=== PATIENT | female | born 1950 | race Caucasian/White ===

== ENCOUNTER 2018-01-20 19:16 | Observation (INO) | payer MEDICARE, OTHER ==
[~2018-01-20] VITALS: Ht 167.6 cm; Wt 78.0 kg
[~2018-01-20 19:16] MED LIST: ACET325 PO; ASPI325T PO; B12-1CHW IM; CRAN500C2 PO; FLUO20SO3 PO; FURO40TA PO; IRON18TA2 IV; LISI-363 PO; MELO15TA2 PO; RANI150 PO; ST JOHN S WORT PO; TAB-TAB PO
[2018-01-20 20:12] VITALS: BP 125/58; PULSE 83; RESP 15; TEMP 98.1; O2SAT 97
[2018-01-20] MEDS ORDERED: LIDOCAINE HCL 1% PF 30 ML VIAL INFIL ONE (20:30)
--- NOTE | 2018-01-20 20:36 | PD ---
HPI Chief Complaint: Fall Time Seen by Provider: 20:32 Travel History International Travel<30 days: No Contact w/Intl Traveler<30days: No Traveled to known affect area: No History of Present Illness HPI 67-year-old female presents to the emergency department by EMS transport from local parking lot where she had a non-syncopal slip and fall sustaining a laceration to her left lower leg ankle area. Patient admits to drinking alcohol this evening prior to attempting to drive home and patient reports that she lost her balance as she got into her vehicle and sustained a laceration to her lower leg. Patient states she did not hit her head did not have loss of consciousness did not sustain an injury to her neck back chest abdomen pelvis or other extremities. Patient states her last tetanus immunization was approximately 1 year ago. Patient takes aspirin but no other blood thinning agents daily. Patient has extensive past medical history including CVA with mild right-sided residual weakness. Patient has chronic neck and back pain associated with previous injury and surgical intervention. Patient denies any chest pain palpitations shortness of breath sweats near syncope syncope or new onset balance disturbance or headache. Patient rates her ankle pain 10/10 in intensity. PFSH Past Medical History Narrative Medical Anemia arthritis depression basal cell cancer CVA TIA GERD UTI hypertension osteoarthritis renal insufficiency gastric bypass cholecystectomy bilateral knee surgery; alcohol use; nursing notes reviewed Hx Anticoagulant Therapy: Yes (ASA) Anemia: Yes Arthritis: Yes Asthma: No Autoimmune Disease: No Blood Disorders: No Anxiety: No Depression: Yes Heart Rhythm Problems: No Cancer: Yes (BASAL CELL) Cardiovascular Problems: Yes (HTN) High Cholesterol: No Chemotherapy: No Chest Pain: No Congestive Heart Failure: No COPD: No Cerebrovascular Accident: Yes Diabetes: No Diminished Hearing: No Endocrine: No Gastrointestinal Disorders: Yes (acid reflux) GERD: Yes Glaucoma: No Genitourinary: Yes (kidney infections) Headaches: No Hepatitis: No Hiatal Hernia: No Hypertension: Yes Immune Disorder: No Implanted Vascular Access Dvce: Yes Kidney Stones: No Musculoskeletal: Yes (osteoarthritis through the spine) Neurologic: Yes (cva 2001 multiple tia's numbness and tingling in both upper ext) Psychiatric: Yes (hx of depression) Reproductive: No Respiratory: No Migraines: No Myocardial Infarction: No Radiation Therapy: No Renal Failure: Yes (ACUTE RENAL FAILURE) Seizures: No Sickle Cell Disease: No Sleep Apnea: No Thyroid Disease: No Ulcer: No Menopausal: Yes : 1 Para: 1 Past Surgical History Abdominal Surgery: Yes (gastric by-pass cholecystectomy) AICD: No Appendectomy: No Arteriovenous Shunt: No Body Medical Devices: hardware left foot neck pt has hardware Cardiac Surgery: No Cholecystectomy: Yes Ear Surgery: No Endocrine Surgery: Yes (GALLBLADDER ) Eye Surgery: No Genitourinary Surgery: No Gynecologic Surgery: No Insulin Pump: No Joint Replacement: Yes (trista knees) Oral Surgery: No Pacemaker: No Thoracic Surgery: No Other Surgery: Yes Social History Alcohol Use: Yes (3-4 glassed of wine a week.) Tobacco Use: No Substance Use: No Allergies-Medications (Allergen,Severity, Reaction): Coded Allergies: No Known Allergies (Verified Adverse Reaction, Unknown, 01/20/18) Reported Meds & Prescriptions Reported Meds & Active Scripts Active Reported Aspirin 325 Mg Tab (Aspirin) 325 Mg Tab 325 Mg PO DAILY [saint kaiser wort] 150 Mg PO DAILY Mobic (Meloxicam) 15 Mg Tab 15 Mg PO DAILY Cranberry (Cranberry (Vaccinium Macrocarp) 500 Mg Cap PO DAILY Multivitamin (Multivitamins) 1 Tab Tab 1 Tab PO DAILY Zantac 150 Mg Tab (Ranitidine HCl) 150 Mg Tab 150 Mg PO BID [id number] (Mecobalamin) Unknown Strength Chw 1,000 Mg IM MONTHLY Iron (Ferrous Sulfate) Unknown Strength Tab Unknown Dose IV pt's iron level is checked q 3-4 mos and they give iv iron accordingly Furosemide 40 Mg Tab 40 Mg PO DAILY Lisinopril 20 mg (Lisinopril) 20 Mg Tab 1 Tab PO DAILY Tylenol (Acetaminophen) 325 Mg Tab 650 Mg PO Q6H PRN Prozac (Fluoxetine HCl) 20 Mg/5 Ml Liqd 20 Mg PO DAILY Review of Systems Except as stated in HPI: all other systems reviewed are Neg Physical Exam Narrative GENERAL: Well-developed well-nourished female no acute distress no respiratory distress SKIN: Warm and dry. HEAD: Atraumatic. Normocephalic. No scalp soft tissue swelling erythema hematoma abrasion or laceration or bony abnormality. EYES: Pupils equal and round. Extraocular muscles intact. No scleral icterus. No injection or drainage. ENT: No nasal bleeding or discharge. Mucous membranes pink and moist. Airway is patent. No hemotympanum. NECK: Trachea midline. No JVD. No midline tenderness to direct palpation along the cervical spine no bony step-off. CARDIOVASCULAR: Regular rate and rhythm. RESPIRATORY: No accessory muscle use. Clear to auscultation. Breath sounds equal bilaterally. GASTROINTESTINAL: Abdomen soft, non-tender, nondistended. Hepatic and splenic margins not palpable. MUSCULOSKELETAL: Extremities without clubbing, cyanosis, or edema. No obvious deformities. Attention left lower extremity anterior left ankle large 12 cm linear laceration not circumferential without deformity mild soft tissue swelling of the medial and lateral malleoli dorsalis pedis pulse 2+ to palpation capillary refill brisk and less than 2 seconds per digit patient does have intact dorsiflexion of the left ankle. NEUROLOGICAL: Awake and alert. No obvious cranial nerve deficits. Motor grossly within normal limits. Five out of 5 muscle strength in the arms and legs. Normal speech. PSYCHIATRIC: Appropriate mood and affect; insight and judgment normal. Data Data Last Documented VS Vital Signs Date Time Temp Pulse Resp B/P (MAP) Pulse Ox O2 Delivery O2 Flow Rate FiO2 01/20/18 20:18 81 15 97 Room Air 01/20/18 20:12 98.1 125/58 (80) Orders Orders Ankle, Complete ([id number]) (01/20/18 ) Ice/Cold Pack (01/20/18 20:30) Lidocaine Pf 1% Inj (Xylocaine-Mpf 1% In (01/20/18 20:30) Complete Blood Count With Diff (01/20/18 20:36) Basic Metabolic Panel (Bmp) (01/20/18 20:36) Alcohol (Ethanol) (01/20/18 20:36) Cefazolin 2 Gm Premix (Ancef 2 Gm Premix (01/20/18 20:45) Wound Care (01/20/18 20:36) Electrocardiogram (01/20/18 20:10) Sodium Polysty Sulfate Liq (Kayexalate L (01/20/18 22:15) Potassium, Serum (K) (01/20/18 22:15) Splint Or Brace Apply/Monitor (01/20/18 22:15) Sodium Chlor 0.9% 1000 Ml Inj (Ns 1000 M (01/20/18 23:15) Calcium Gluconate Inj (Calcium Gluconate (01/20/18 23:15) Dextrose 50% In [place] (Syr) Inj (D50w (Syr (01/20/18 23:15) Blood Glucose (01/20/18 23:03) Insulin Human Regular Inj (Novolin R Inj (01/20/18 23:15) Magnesium (Mg) (01/20/18 23:03) Brace Fracture Walker (01/20/18 ) Basic Metabolic Panel (Bmp) (01/21/18 00:46) Admit Order (Ed Use Only) (01/21/18 ) Membership Director / Telemetry [id number] (01/21/18 01:17) Diet Heart Healthy (01/21/18 Breakfast) Activity Oob With Assistance (01/21/18 01:17) Notify Dr: Other (01/21/18 01:17) Labs Laboratory Tests Test 01/20/18 21:16 01/20/18 22:25 01/21/18 00:56 White Blood Count 8.1 TH/MM3 Red Blood Count 4.11 MIL/MM3 Hemoglobin 12.7 GM/DL Hematocrit 38.6 % Mean Corpuscular Volume 93.9 FL Mean Corpuscular Hemoglobin 31.0 PG Mean Corpuscular Hemoglobin Concent 33.0 % Red Cell Distribution Width 14.1 % Platelet Count 439 TH/MM3 Mean Platelet Volume 7.3 FL Neutrophils (%) (Auto) 77.8 % Lymphocytes (%) (Auto) 13.6 % Monocytes (%) (Auto) 6.3 % Eosinophils (%) (Auto) 1.4 % Basophils (%) (Auto) 0.9 % Neutrophils # (Auto) 6.3 TH/MM3 Lymphocytes # (Auto) 1.1 TH/MM3 Monocytes # (Auto) 0.5 TH/MM3 Eosinophils # (Auto) 0.1 TH/MM3 Basophils # (Auto) 0.1 TH/MM3 CBC Comment DIFF FINAL Differential Comment Blood Urea Nitrogen 24 MG/DL 23 MG/DL Creatinine 1.38 MG/DL 1.29 MG/DL Random Glucose 101 MG/DL 54 MG/DL Calcium Level 8.5 MG/DL 8.4 MG/DL Sodium Level 136 MEQ/L 141 MEQ/L Potassium Level 6.0 MEQ/L 5.5 MEQ/L 5.2 MEQ/L Chloride Level 106 MEQ/L 111 MEQ/L Carbon Dioxide Level 20.1 MEQ/L 20.9 MEQ/L Anion Gap 10 MEQ/L 9 MEQ/L Estimat Glomerular Filtration Rate 38 ML/MIN 41 ML/MIN Ethyl Alcohol Level 128 MG/DL Magnesium Level 2.1 MG/DL MDM Medical Decision Making Medical Screen Exam Complete: Yes Emergency Medical Condition: Yes Medical Record Reviewed: Yes Interpretation(s) EKG normal sinus rhythm rate [address] elevation injury pattern or ectopy noted Vital Signs Date Time Temp Pulse Resp B/P (MAP) Pulse Ox O2 Delivery O2 Flow Rate FiO2 01/20/18 20:18 81 15 97 Room Air 01/20/18 20:12 98.1 83 15 125/58 (80) 97 Left ankle xr: FINDINGS: There is a mildly displaced fracture involving the medial malleolus. The mortise is otherwise intact. The hindfoot is grossly intact. Note of previous screw fixation of the fifth metatarsal. CONCLUSION: Mildly displaced medial malleolar fracture. Kaiser Mackey MD on January 20, 2018 at 21:39 Board Certified Radiologist. This report was verified electronically. Differential Diagnosis Laceration, sprain, fracture, arrhythmia, electrolyte disturbance, alcohol intoxication, anemia Narrative Course IV access obtained specimens collected and sent for resulting EKG sinus rhythm no acute injury pattern change noted; imaging study ordered Imaging consistent with minimally displaced linear distal medial malleolar fracture with joint space maintained; patient has been amatory to the bathroom prior to being informed of imaging results. Laceration undergoing repair via nurse practitioner. Patient desirous of being discharged home, lives by herself with prior history of CVA with minimal residual is supposed to use cane at all times has access to a walker but is unable to use crutches to keep him any nonweightbearing. Will immobilize with walking boot. Patient identified to have hyperkalemia potassium 6.0 with renal insufficiency stat potassium redraw ordered EKG sinus rhythm no true peak T waves or acute changes noted. At 12:45 AM blood sugar 51 patient administered half amp of D50 and meal; patient attempting to ambulate to bathroom at this point time patient to unsteady secondary to pain associated with left ankle fracture. GCS 15. At 2:30 AM patient complains of nausea blood sugar 113 patient attempting to eat a healthy choice meal; Zofran 4 mg IV ordered along with half amp of D50. Patient given Toradol 30 mg IV for ankle pain. Critical Care Narrative Aggregate critical care time was 35 minutes. Time to perform other separately billable procedures was not included in the critical care time. My time did not include minutes spent treating any other patients simultaneously or on activities that did not directly contribute to the patient's treatment. The services I provided to this patient were to treat and/or prevent clinically significant deterioration that could result in: Arrhythmia, cardiac arrest, I provided critical care services requiring my management, as noted below: Chart data review, documentation time, medication orders and management, vital sign assessments/reviewing monitor data, ordering and reviewing lab tests, ordering and interpreting/reviewing x-rays and diagnostic studies, care of the patient and discussion of the patient with the admitting physicians. Diagnosis Primary Impression: Laceration of ankle, left Qualified Codes: S91.012A - Laceration without foreign body, left ankle, initial encounter Additional Impressions: Fracture of ankle, medial malleolus, closed Qualified Codes: S82.52XA - Displaced fracture of medial malleolus of left tibia, initial encounter for closed fracture Renal insufficiency Hyperkalemia Damaris Orellana MD Jan 20, 2018 20:36
[2018-01-20] MEDS ORDERED: ceFAZolin 2 GM PREMIX 50 ML IV ONE (20:45)
[2018-01-20 21:21] LABS: AUTOMATED NEUTROPHIL # 6.3 TH/MM3 (1.8-7.7); BASOPHIL # 0.1 TH/MM3 (0-0.2); BASOPHIL % 0.9 % (0.0-2.0); EOSINOPHIL # 0.1 TH/MM3 (0-0.4); EOSINOPHIL % 1.4 % (0.0-4.0); HEMATOCRIT 38.6 % (35.0-46.0); HEMOGLOBIN 12.7 GM/DL (11.6-15.3); LYMPH % 13.6 % (9.0-44.0); LYMPHOCYTE # 1.1 TH/MM3 (1.0-4.8); MEAN CELL VOLUME 93.9 FL (80.0-100.0); MEAN PLATELET VOLUME 7.3 FL (7.0-11.0); MONO % 6.3 % (0.0-8.0); MONOCYTE # 0.5 TH/MM3 (0-0.9); NEUT % 77.8 % (16.0-70.0); PLATELET COUNT 439 TH/MM3 (150-450); RED BLOOD COUNT 4.11 MIL/MM3 (4.00-5.30); RED CELL DISTRIBUTION WIDTH 14.1 % (11.6-17.2); WHITE BLOOD COUNT 8.1 TH/MM3 (4.0-11.0)
--- NOTE | 2018-01-20 21:43 | RADRPT ---
EXAM DATE/TIME: 01/20/2018 20:55 [facility] COMPARISON: No previous studies available for comparison. INDICATIONS : Left ankle pain post fall today MEDICAL HISTORY : None. SURGICAL HISTORY : None. ENCOUNTER: Initial ACUITY: 1 day PAIN SCORE: 3/10 LOCATION: Left entire ankle FINDINGS: There is a mildly displaced fracture involving the medial malleolus. The mortise is otherwise intact. The hindfoot is grossly intact. Note of previous screw fixation of the fifth metatarsal. CONCLUSION: Mildly displaced medial malleolar fracture. Amaury Mackey MD on January 20, 2018 at 21:39 Board Certified Radiologist. This report was verified electronically.
[2018-01-20 21:47] LABS: BICARBONATE 20.1 MEQ/L (21.0-32.0); CALCIUM 8.5 MG/DL (8.5-10.1); CREATININE 1.38 MG/DL (0.50-1.00)
[2018-01-20] MEDS ORDERED: SODIUM POLYSTYRENE SULFONATE SUSP 15 GM/60 ML CUP PO ONE (22:15)
--- NOTE | 2018-01-20 23:03 | PD ---
Physical Exam Date Seen by Provider: Jan 20, 2018 Time Seen by Provider: 23:02 Narrative I was asked by Dr. Orellana to repair laceration to the patient's left leg. Please see her documentation for full history and physical. Data Data Last Documented VS Vital Signs Date Time Temp Pulse Resp B/P (MAP) Pulse Ox O2 Delivery O2 Flow Rate FiO2 01/20/18 20:18 81 15 97 Room Air 01/20/18 20:12 98.1 125/58 (80) Orders Orders Ankle, Complete ([id number]) (01/20/18 ) Ice/Cold Pack (01/20/18 20:30) Lidocaine Pf 1% Inj (Xylocaine-Mpf 1% In (01/20/18 20:30) Complete Blood Count With Diff (01/20/18 20:36) Basic Metabolic Panel (Bmp) (01/20/18 20:36) Alcohol (Ethanol) (01/20/18 20:36) Cefazolin 2 Gm Premix (Ancef 2 Gm Premix (01/20/18 20:45) Wound Care (01/20/18 20:36) Electrocardiogram (01/20/18 20:10) Sodium Polysty Sulfate Liq (Kayexalate L (01/20/18 22:15) Potassium, Serum (K) (01/20/18 22:15) Splint Or Brace Apply/Monitor (01/20/18 22:15) Labs Laboratory Tests Test 01/20/18 21:16 01/20/18 22:25 White Blood Count 8.1 TH/MM3 Red Blood Count 4.11 MIL/MM3 Hemoglobin 12.7 GM/DL Hematocrit 38.6 % Mean Corpuscular Volume 93.9 FL Mean Corpuscular Hemoglobin 31.0 PG Mean Corpuscular Hemoglobin Concent 33.0 % Red Cell Distribution Width 14.1 % Platelet Count 439 TH/MM3 Mean Platelet Volume 7.3 FL Neutrophils (%) (Auto) 77.8 % Lymphocytes (%) (Auto) 13.6 % Monocytes (%) (Auto) 6.3 % Eosinophils (%) (Auto) 1.4 % Basophils (%) (Auto) 0.9 % Neutrophils # (Auto) 6.3 TH/MM3 Lymphocytes # (Auto) 1.1 TH/MM3 Monocytes # (Auto) 0.5 TH/MM3 Eosinophils # (Auto) 0.1 TH/MM3 Basophils # (Auto) 0.1 TH/MM3 CBC Comment DIFF FINAL Differential Comment Blood Urea Nitrogen 24 MG/DL Creatinine 1.38 MG/DL Random Glucose 101 MG/DL Calcium Level 8.5 MG/DL Sodium Level 136 MEQ/L Potassium Level 6.0 MEQ/L 5.5 MEQ/L Chloride Level 106 MEQ/L Carbon Dioxide Level 20.1 MEQ/L Anion Gap 10 MEQ/L Estimat Glomerular Filtration Rate 38 ML/MIN Ethyl Alcohol Level 128 MG/DL MDM Supervised Visit with KENDALL: No Procedures Procedure Narrative LACERATION LOCATION: Left lower leg LENGTH: 15 cm NUMBER OF STITCHES/NATHAN: 21 sutures REPAIR: The area of the laceration was prepped with Betadine and sterilely draped. The laceration was infiltrated with 1% lidocaine. The wound was copiously irrigated and explored without evidence of foreign body, tendon injury or neurovascular injury. The wound was closed using 3-0 Prolene. This was a single layer repair. A sterile dressing was applied. The patient was advised to keep the dressing clean and dry. Patient tolerated the procedure well. Diagnosis Primary Impression: Laceration of ankle, left Qualified Codes: S91.012A - Laceration without foreign body, left ankle, initial encounter Additional Impression: Fracture of ankle, medial malleolus, closed Qualified Codes: S82.52XA - Displaced fracture of medial malleolus of left tibia, initial encounter for closed fracture Nahomy Cole Jan 20, 2018 23:03
[2018-01-20] MEDS ORDERED: CALCIUM GLUCONATE INJ 1 GM in SODIUM CHLORIDE 0.9% INJ 100 ML IV ONE (23:15)
[2018-01-20] MEDS ORDERED: INSULIN HUMAN REGULAR 1,000 UNITS/10 ML VIAL IV PUSH ONE (23:15)
[2018-01-20] MEDS ORDERED: SODIUM CHLOR 0.9% 1000 ML INJ 1,000 ML IV ONE (23:15)
[2018-01-20] MEDS ORDERED: DEXTROSE 50% IN WATER 50 ML SYRINGE IV PUSH ONE (23:15)
[2018-01-21 01:28] LABS: BICARBONATE 20.9 MEQ/L (21.0-32.0); CALCIUM 8.4 MG/DL (8.5-10.1); CREATININE 1.29 MG/DL (0.50-1.00)
[2018-01-21] MEDS ORDERED: SENNOSIDES 8.6 MG TAB PO PRN (02:30)
[2018-01-21] MEDS ORDERED: NALOXONE HCL 0.4 MG/ML AMP IV PUSH PRN (02:30)
[2018-01-21] MEDS ORDERED: LACTULOSE SYRUP 20 GM/30 ML CUP PO PRN (02:30)
[2018-01-21] MEDS ORDERED: MAGNESIUM HYDROXIDE SUSP 30 ML CUP PO PRN (02:30)
[2018-01-21] MEDS ORDERED: DEXTROSE 50% IN WATER 50 ML SYRINGE IV PUSH ONE (02:30)
[2018-01-21] MEDS ORDERED: LORazepam 2 MG/ML VIAL IV PUSH PRN ×4 (02:30)
[2018-01-21] MEDS ORDERED: LORazepam 2 MG TAB PO PRN (02:30)
[2018-01-21] MEDS ORDERED: ONDANSETRON HCL 4 MG/2 ML VIAL IV PUSH ONE (02:30)
[2018-01-21] MEDS ORDERED: LORazepam 1 MG TAB PO PRN (02:30)
[2018-01-21] MEDS ORDERED: ACETAMINOPHEN 325 MG TAB PO PRN (02:30)
[2018-01-21] MEDS ORDERED: BISACODYL 10 MG SUPP RECTAL PRN (02:30)
[2018-01-21] MEDS ORDERED: ONDANSETRON HCL 4 MG/2 ML VIAL IVP PRN (02:30)
[2018-01-21] MEDS ORDERED: SODIUM CHLORIDE 0.9% FLUSH 10 ML FLUSH IV FLUSH PRN (02:30)
[2018-01-21] MEDS ORDERED: FLUMAZENIL 0.5 MG/5 ML VIAL IV PUSH PRN (02:30)
[2018-01-21] MEDS ORDERED: KETOROLAC TROMETHAMINE 30 MG/ML (IVP) VIAL IV PUSH ONE (02:45)
[2018-01-21] MEDS: DEXT 5%-NACL 0.9% 1000 ML INJ 1,000 ML IV SCH ×2 (04:27→09:21)
[2018-01-21] MEDS ORDERED: MULT-65 PO (06:15)
[2018-01-21] MEDS ORDERED: ZANT150T2 PO (06:15)
[2018-01-21] MEDS ORDERED: LISI-515 PO (06:15)
[2018-01-21] MEDS ORDERED: FERR324T8 PO (06:15)
[2018-01-21] MEDS ORDERED: FURO1TAB60 PO (06:15)
[2018-01-21] MEDS ORDERED: ASPI-183 PO (06:15)
[2018-01-21] MEDS ORDERED: MOBI15TA PO (06:15)
[2018-01-21] MEDS ORDERED: METH5000 SL (06:15)
[2018-01-21] MEDS ORDERED: CRANCAP2 PO (06:15)
[2018-01-21] MEDS ORDERED: FLUO20SO PO (06:15)
--- NOTE | 2018-01-21 07:35 | PD.CONS ---
HPI Service Orthopedic Surgeons Consult Requested By Dr. Orellana Reason for Consult Fracture of the left ankle Primary Care Physician Augustin George MD Admission Diagnosis hyperkalemia; renal insufficiency; L ankle fracture Diagnoses: Chief Complaint: Left ankle pain and difficulty with ambulation History of Present Illness This patient is a 67-year-old female who slipped and fell in a parking lot. She sustained a laceration of the anterior aspect of the left ankle. She had pain and x-ray revealed evidence of a nondisplaced left medial malleolus fracture. I have been asked to see the patient in consultation regarding the same Review of Systems Constitutional: DENIES: Diaphoretic episodes, Fatigue, Fever, Weight gain, Weight loss, Chills, Dizziness, Change in appetite, Night Sweats Endocrine: DENIES: Abnorml menstrual pattern, Heat/cold intolerance, Polydipsia , Polyuria, Polyphagia Eyes: DENIES: Blurred vision, Diplopia, Eye inflammation, Eye pain, Vision loss , Photosensitivity, Double Vision Ears, nose, mouth, throat: DENIES: Tinnitus, Hearing loss, Vertigo, Nasal discharge, Oral lesions, Throat pain, Hoarseness, Ear Pain, Running Nose, Epistaxis, Sinus Pain, Toothache, Odynophagia Respiratory: DENIES: Apneas, Cough, Snoring, Wheezing, Hemoptysis, Sputum production, Shortness of breath Cardiovascular: DENIES: Chest pain, Palpitations, Syncope, Dyspnea on Exertion , PND, Lower Extremity Edema, Orthopnea, Claudication Gastrointestinal: DENIES: Abdominal pain, Black stools, Bloody stools, Constipation, Diarrhea, Nausea, Vomiting, Difficulty Swallowing, Anorexia Genitourinary: DENIES: Abnormal vaginal bleeding, Dysmenorrhea, Dyspareunia, Sexual dysfunction, Urinary frequency, Urinary incontinence, Urgency, Hematuria , Dysuria, Nocturia, Vaginal discharge Integumentary: DENIES: Abnormal pigmentation, Pruritus, Rash, Nail changes, Breast masses, Breast skin changes, Nipple discharge Hematologic/lymphatic: DENIES: Bruising, Lymphadenopathy Immunologic/allergic: DENIES: Eczema, Urticaria Neurologic: DENIES: Abnormal gait, Headache, Localized weakness, Paresthesias, Seizures, Speech Problems, Tremor, Poor Balance Psychiatric: DENIES: Anxiety, Confusion, Mood changes, Depression, Hallucinations, Agitation, Suicidal Ideation, Homicidal Ideation, Delusions Past Family Social History Allergies: Coded Allergies: No Known Allergies (Verified Allergy, Unknown, 01/21/18) Active Ordered Medications Current Medications Medications (Trade) Dose Ordered Sig/Mayda Route Start Time Stop Time Status Last Admin Dextrose/Sodium Chloride 1,000 ml @ 125 mls/hr Q8H IV 01/21/18 02:30 01/21/18 04:27 (NS Flush) 2 ml UNSCH PRN IV FLUSH 01/21/18 02:30 (NS Flush) 2 ml BID IV FLUSH 01/21/18 09:00 (Tylenol) 650 mg Q4H PRN PO 01/21/18 02:30 (Zofran Inj) 4 mg Q6H PRN IVP 01/21/18 02:30 (Narcan Inj) 0.4 mg UNSCH PRN IV PUSH 01/21/18 02:30 (Isaura-Colace) 1 tab BID PO 01/21/18 09:00 (Milk Of Magnesia Liq) 30 ml Q12H PRN PO 01/21/18 02:30 (Senokot) 17.2 mg Q12H PRN PO 01/21/18 02:30 (Dulcolax Supp) 10 mg DAILY PRN RECTAL 01/21/18 02:30 (Lactulose Liq) 30 ml DAILY PRN PO 01/21/18 02:30 (Folate) 1 mg DAILY PO 01/21/18 09:00 01/26/18 08:59 (Vitamin B1) 100 mg DAILY PO 01/21/18 09:00 (Theragran M Tab) 1 tab DAILY PO 01/21/18 09:00 01/26/18 08:59 (Romazicon Inj) 0.2 mg Q1M PRN IV PUSH 01/21/18 02:30 (Ativan) 1 mg Q4H PRN PO 01/21/18 02:30 (Ativan Inj) 1 mg Q4H PRN IV PUSH 01/21/18 02:30 (Ativan) 2 mg Q2H PRN PO 01/21/18 02:30 (Ativan Inj) 2 mg Q2H PRN IV PUSH 01/21/18 02:30 (Ativan Inj) 2 mg Q1H PRN IV PUSH 01/21/18 02:30 (Ativan Inj) 2 mg Q15M PRN IV PUSH 01/21/18 02:30 Reported Meds & Active Scripts Active Reported Zantac (Ranitidine HCl) 150 Mg Tab 150 Mg PO DAILY Multi-Vitamin Daily (Multiple Vitamin) 1 Tab Tab 1 Tab PO DAILY B-12 Quick Dissolve (Methylcobalamin Odt) 5,000 Mcg Tab 5,000 Mcg SL DAILY Mobic (Meloxicam) 15 Mg Tab 15 Mg PO DAILY Lisinopril 20 Mg Tab 20 Mg PO DAILY Lasix (Furosemide) 40 Mg Tab 40 Mg PO DAILY Fluoxetine Liq (Fluoxetine HCl) 20 mg/5 ML Soln 20 Mg PO DAILY Ferrous Fumarate 324 Mg (106 Mg Iron) Tab 325 Mg PO BID Cranberry Urinary Comfort (Vitamins C & E) 1 Cap 1 Cap PO DAILY Aspirin 325 Mg Tab 325 Mg PO DAILY [saint kaiser wort] 150 Mg PO DAILY Physical Exam Vital Signs Vital Signs Date Time Temp Pulse Resp B/P (MAP) Pulse Ox O2 Delivery O2 Flow Rate FiO2 01/20/18 20:18 81 15 97 Room Air 01/20/18 20:12 98.1 83 15 125/58 (80) 97 Physical Exam The patient is lying in bed and appears comfortable. The left ankle is in a short leg splint. Sensation is normal. She can wiggle her toes. There is documentation of a laceration which was repaired by the medical staff. That is not observed as it is underneath the bandages. Laboratory Laboratory Tests Test 01/20/18 21:16 01/20/18 22:25 01/21/18 00:56 White Blood Count 8.1 Red Blood Count 4.11 Hemoglobin 12.7 Hematocrit 38.6 Mean Corpuscular Volume 93.9 Mean Corpuscular Hemoglobin 31.0 Mean Corpuscular Hemoglobin Concent 33.0 Red Cell Distribution Width 14.1 Platelet Count 439 Mean Platelet Volume 7.3 Neutrophils (%) (Auto) 77.8 Lymphocytes (%) (Auto) 13.6 Monocytes (%) (Auto) 6.3 Eosinophils (%) (Auto) 1.4 Basophils (%) (Auto) 0.9 Neutrophils # (Auto) 6.3 Lymphocytes # (Auto) 1.1 Monocytes # (Auto) 0.5 Eosinophils # (Auto) 0.1 Basophils # (Auto) 0.1 CBC Comment DIFF FINAL Differential Comment Blood Urea Nitrogen 24 23 Creatinine 1.38 1.29 Random Glucose 101 54 Calcium Level 8.5 8.4 Sodium Level 136 141 Potassium Level 6.0 5.5 5.2 Chloride Level 106 111 Carbon Dioxide Level 20.1 20.9 Anion Gap 10 9 Estimat Glomerular Filtration Rate 38 41 Ethyl Alcohol Level 128 Magnesium Level 2.1 Result Diagram: 01/20/18 2116 01/21/18 0056 Assessment & Plan Assessment and Plan Fracture left ankle, medial malleolus, nondisplaced. Laceration left anterior lower tibia. PLAN: Nonsurgical treatment of the left ankle fracture. Nonweightbearing using a walker and present fracture brace. Okay by orthopedics for discharge, when medically clear Follow-up in 2 weeks for evaluation and follow-up x-rays Duncan Moreau MD Jan 21, 2018 07:35
[2018-01-21] MEDS: SODIUM CHLORIDE 0.9% FLUSH 10 ML FLUSH IV FLUSH SCH ×3 (08:01→23:27)
--- NOTE | 2018-01-21 08:17 | HHI.HP ---
[facility] Augustin George MD Admission Diagnosis hyperkalemia; renal insufficiency; L ankle fracture Diagnoses: (1) Fracture of ankle, medial malleolus, closed Diagnosis: Principal Chief Complaint: fall Travel History International Travel<30 Days: No Contact w/Intl Traveler <30 Da: No Traveled to Known Affected Are: No History of Present Illness patient is a 67 y/o female with history of hypertension and CVA who presented to ER after she fell. she says that she was get in the car when she missed a step and fell after which she started to have some pain to the left ankle. she denies any prodromal symptoms before the fall including chest pain, sob or dizziness. she didn't pass out. pain was fairly controlled at the time of my evaluation. she denies any other complaints. Review of Systems Constitutional: DENIES: Fever, Weight loss, Chills, Night Sweats Eyes: DENIES: Blurred vision, Diplopia, Vision loss, Double Vision Ears, nose, mouth, throat: DENIES: Tinnitus, Vertigo, Throat pain, Epistaxis Respiratory: DENIES: Apneas, Cough, Snoring, Wheezing, Hemoptysis, Sputum production, Shortness of breath Cardiovascular: DENIES: Chest pain, Palpitations, Syncope, Dyspnea on Exertion , PND, Lower Extremity Edema, Orthopnea, Claudication Gastrointestinal: DENIES: Abdominal pain, Black stools, Bloody stools, Constipation, Diarrhea, Nausea, Vomiting, Difficulty Swallowing, Anorexia Genitourinary: DENIES: Urinary frequency, Urgency, Hematuria, Dysuria Musculoskeletal: COMPLAINS OF: Joint pain (left ankle.), DENIES: Muscle aches, Stiffness, Joint Swelling Integumentary: DENIES: Rash Neurologic: DENIES: Abnormal gait, Headache, Localized weakness, Paresthesias, Seizures, Speech Problems, Tremor, Poor Balance Psychiatric: DENIES: Anxiety, Confusion, Mood changes, Depression, Hallucinations, Agitation, Suicidal Ideation, Homicidal Ideation, Delusions Past Family Social History Past Medical History hypertension/ CVA. Past Surgical History knee surgery/ gastric bypass. Reported Medications Aspirin 325 Mg Tab (Aspirin) 325 Mg Tab 325 Mg PO DAILY [s[facility]aiser wort] 150 Mg PO DAILY Mobic (Meloxicam) 15 Mg Tab 15 Mg PO DAILY Cranberry (Cranberry (Vaccinium Macrocarp) 500 Mg Cap PO DAILY Multivitamin (Multivitamins) 1 Tab Tab 1 Tab PO DAILY Zantac 150 Mg Tab (Ranitidine HCl) 150 Mg Tab 150 Mg PO BID [id number] (Mecobalamin) Unknown Strength Chw 1,000 Mg IM MONTHLY Iron (Ferrous Sulfate) Unknown Strength Tab Unknown Dose IV pt's iron level is checked q 3-4 mos and they give iv iron accordingly Furosemide 40 Mg Tab 40 Mg PO DAILY Lisinopril 20 mg (Lisinopril) 20 Mg Tab 1 Tab PO DAILY Tylenol (Acetaminophen) 325 Mg Tab 650 Mg PO Q6H PRN Prozac (Fluoxetine HCl) 20 Mg/5 Ml Liqd 20 Mg PO DAILY Allergies: Coded Allergies: No Known Allergies (Verified Allergy, Unknown, 01/21/18) Active Ordered Medications Inpatient Medications Acetaminophen (Tylenol) 650 mg Q4H PRN PO TEMP > 100.4; Start 01/21/18 at 02:30 Bisacodyl (Dulcolax Supp) 10 mg DAILY PRN RECTAL SEVERE CONSITIPATION; Start at 02:30 Calcium Gluconate 1 gm/Sodium Chloride 110 ml @ 110 mls/hr ONCE ONCE IV Last administered on 01/20/18at 23:32; Start 01/20/18 at 23:15; Stop 01/21/18 at 00:14 ; Status DC Cefazolin Sodium/ Dextrose 50 ml @ 100 mls/hr ONCE ONCE IV Last administered on 01/20/18at 21:17; Start 01/20/18 at 20:45; Stop 01/20/18 at 21:14; Status DC Dextrose (D50w (Syr) Inj) 25 ml ONCE ONCE IV PUSH Last administered on at 00:51; Start 01/21/18 at 02:30; Stop 01/21/18 at 02:31; Status DC Dextrose/Sodium Chloride 1,000 ml @ 125 mls/hr Q8H IV Last administered on at 04:27; Start 01/21/18 at 02:30 Flumazenil (Romazicon Inj) 0.2 mg Q1M PRN IV PUSH SEE LABEL COMMENTS; Start at 02:30 Folic Acid (Folate) 1 mg DAILY PO ; Start 01/21/18 at 09:00; Stop 01/26/18 at 08 :59 Insulin Human Regular (NovoLIN R INJ) 7 units ONCE ONCE IV PUSH Last administered on 01/20/18at 23:33; Start 01/20/18 at 23:15; Stop 01/20/18 at 23:16 ; Status DC Ketorolac Tromethamine (Toradol Inj) 30 mg ONCE ONCE IV PUSH Last administered on 01/21/18at 02:45; Start 01/21/18 at 02:45; Stop 01/21/18 at 02:47 ; Status DC Lactulose (Lactulose Liq) 30 ml DAILY PRN PO SEVERE CONSITIPATION; Start at 02:30 Lidocaine HCl (Xylocaine-Mpf 1% Inj) 30 ml ONCE ONCE INFIL Last administered on 01/20/18at 22:09; Start 01/20/18 at 20:30; Stop 01/20/18 at 20:33; Status DC Lorazepam (Ativan Inj) 2 mg Q15M PRN IV PUSH CIWA > 20; Start 01/21/18 at 02:30 Lorazepam (Ativan) 2 mg Q2H PRN PO CIWA 11-14; Start 01/21/18 at 02:30 Magnesium Hydroxide (Milk Of Magnesia Liq) 30 ml Q12H PRN PO Mild constipation ; Start 01/21/18 at 02:30 Multivitamins/ Minerals Therapeutic (Theragran M Tab) 1 tab DAILY PO ; Start at 09:00; Stop 01/26/18 at 08:59 Naloxone HCl (Narcan Inj) 0.4 mg UNSCH PRN IV PUSH SEE LABEL COMMENTS; Start at 02:30 Ondansetron HCl (Zofran Inj) 4 mg Q6H PRN IVP NAUSEA OR VOMITING; Start at 02:30 Senna/Docusate Sodium (Isaura-Colace) 1 tab BID PO ; Start 01/21/18 at 09:00 Sennosides (Senokot) 17.2 mg Q12H PRN PO Moderate constipation; Start 01/21/18 at 02:30 Sodium Polystyrene Sulfonate (Kayexalate Liq) 15 gm ONCE ONCE PO Last administered on 01/20/18at 23:32; Start 01/20/18 at 22:15; Stop 01/20/18 at 22:19 ; Status DC Sodium Chloride (NS Flush) 2 ml BID IV FLUSH ; Start 01/21/18 at 09:00 Thiamine HCl (Vitamin B1) 100 mg DAILY PO ; Start 01/21/18 at 09:00 Social History drinks wine. Physical Exam Vital Signs Vital Signs Date Time Temp Pulse Resp B/P (MAP) Pulse Ox O2 Delivery O2 Flow Rate FiO2 01/20/18 20:18 81 15 97 Room Air 01/20/18 20:12 98.1 83 15 125/58 (80) 97 Physical Exam GENERAL: This is a well-nourished, well-developed patient, in no apparent distress. SKIN: No rashes, ecchymoses or lesions. Cool and dry. HEAD: Atraumatic. Normocephalic. No temporal or scalp tenderness. EYES: Pupils equal round and reactive. Extraocular motions intact. No scleral icterus. No injection or drainage. ENT: Nose without bleeding, purulent drainage or septal hematoma. Throat without erythema, tonsillar hypertrophy or exudate. Uvula midline. Airway patent. NECK: Trachea midline. No JVD or lymphadenopathy. Supple, nontender, no meningeal signs. CARDIOVASCULAR: Regular rate and rhythm without murmurs, gallops, or rubs. RESPIRATORY: Clear to auscultation. Breath sounds equal bilaterally. No wheezes , rales, or rhonchi. GASTROINTESTINAL: Abdomen soft, non-tender, nondistended. No hepato-splenomegaly , or palpable masses. No guarding. MUSCULOSKELETAL: left ankle covered in clean dressing. NEUROLOGICAL: Awake and alert. Cranial nerves II through XII intact. Motor and sensory grossly within normal limits. Five out of 5 muscle strength in all muscle groups. Normal speech. Laboratory Laboratory Tests Test 01/20/18 21:16 01/20/18 22:25 01/21/18 00:56 White Blood Count 8.1 Red Blood Count 4.11 Hemoglobin 12.7 Hematocrit 38.6 Mean Corpuscular Volume 93.9 Mean Corpuscular Hemoglobin 31.0 Mean Corpuscular Hemoglobin Concent 33.0 Red Cell Distribution Width 14.1 Platelet Count 439 Mean Platelet Volume 7.3 Neutrophils (%) (Auto) 77.8 Lymphocytes (%) (Auto) 13.6 Monocytes (%) (Auto) 6.3 Eosinophils (%) (Auto) 1.4 Basophils (%) (Auto) 0.9 Neutrophils # (Auto) 6.3 Lymphocytes # (Auto) 1.1 Monocytes # (Auto) 0.5 Eosinophils # (Auto) 0.1 Basophils # (Auto) 0.1 CBC Comment DIFF FINAL Differential Comment Blood Urea Nitrogen 24 23 Creatinine 1.38 1.29 Random Glucose 101 54 Calcium Level 8.5 8.4 Sodium Level 136 141 Potassium Level 6.0 5.5 5.2 Chloride Level 106 111 Carbon Dioxide Level 20.1 20.9 Anion Gap 10 9 Estimat Glomerular Filtration Rate 38 41 Ethyl Alcohol Level 128 Magnesium Level 2.1 Result Diagram: 01/20/186 01/21/18 0056 Imaging Last Impressions Ankle X-Ray 01/20/18 0000 Signed Impressions: Service Date/Time: Saturday, January 20, 2018 20:55 - CONCLUSION: Mildly displaced medial malleolar fracture. Kaiser Mackey MD [place] VTE Risk Assessment Caprini VTE Risk Assessment: Mod/High Risk (score >= 2) Caprini Risk Assessment Model Point Value = 1 Point Value = 2 Point Value = 3 Point Value = 5 Age 41-60 Minor surgery BMI > 25 kg/m2 Swollen legs Varicose veins or History of unexplained or recurrent spontaneous Oral contraceptives or hormone replacement Sepsis (< 1 month) Serious lung disease, including pneumonia (< 1 month) Abnormal pulmonary function Acute myocardial infarction Congestive heart failure (< 1 month) History of inflammatory bowel disease Medical patient at bed rest Age 61-74 Arthroscopic surgery Major open surgery (> 45 min) Laparoscopic surgery (> 45 min) Malignancy Confined to bed (> 72 hours) Immobilizing plaster cast Central venous access Age >= 75 History of VTE Family history of VTE Factor V Leiden Prothrombin [id number] Lupus anticoagulant Anticardiolipin antibodies Elevated serum homocysteine Heparin-induced thrombocytopenia Other congenital or acquired thrombophilia Stroke (< 1 month) Elective arthroplasty Hip, pelvis, or leg fracture Acute spinal cord injury (< 1 month) Prophylaxis Regimen Total Risk Factor Score Risk Level Prophylaxis Regimen 0-1 Low Early ambulation 2 Moderate Order ONE of the following: *Sequential Compression Device (SCD) *Heparin 5000 units SQ BID 3-4 Higher Order ONE of the following medications: *Heparin 5000 units SQ TID *Enoxaparin/Lovenox 40 mg SQ daily (WT < 150 kg, CrCl > 30 mL/min) *Enoxaparin/Lovenox 30 mg SQ daily (WT < 150 kg, CrCl > 10-29 mL/min) *Enoxaparin/Lovenox 30 mg SQ BID (WT < 150 kg, CrCl > 30 mL/min) AND/OR *Sequential Compression Device (SCD) 5 or more Highest Order ONE of the following medications: *Heparin 5000 units SQ TID (Preferred with Epidurals) *Enoxaparin/Lovenox 40 mg SQ daily (WT < 150 kg, CrCl > 30 mL/min) *Enoxaparin/Lovenox 30 mg SQ daily (WT < 150 kg, CrCl > 10-29 mL/min) *Enoxaparin/Lovenox 30 mg SQ BID (WT < 150 kg, CrCl > 30 mL/min) AND *Sequential Compression Device (SCD) Assessment and Plan Assessment and Plan A/P - left ankle fracture after a fall ortho consult appreciated; nonsurgical treatment; nonweight-bearing/ pain control- PT consulted. -hyperkalemia; improved. CKD- stable- f/u as outpatient. -history of hypertension/ CVA; resume aspirin/ hold lisinopril due to hyperkalemia. Discussed Condition With the patient. Problem Qualifiers (1) Fracture of ankle, medial malleolus, closed: Qualified Codes: S82.52XA - Displaced fracture of medial malleolus of left tibia, initial encounter for closed fracture Liza Figueroa MD Jan 21, 2018 08:17
[2018-01-21 08:24] VITALS: BP 119/100; PULSE 81; RESP 18; O2SAT 99
[2018-01-21] MEDS: FOLIC ACID 1 MG TAB PO SCH (08:43)
[2018-01-21] MEDS: DOCUSATE SODIUM 50 MG/SENNA 8.6 MG TAB PO SCH ×2 (08:43→20:07)
[2018-01-21] MEDS: MULTIVITAMINS/MINERALS THERAPEUTIC TAB PO SCH (08:43)
[2018-01-21] MEDS: THIAMINE HCL 100 MG TAB PO SCH (08:43)
[2018-01-21] MEDS: FAMOTIDINE 20 MG TAB PO SCH ×2 (09:16→23:26)
[2018-01-21] MEDS: ASPIRIN 325 MG TAB PO SCH (09:16)
[2018-01-21] MEDS: FUROSEMIDE 40 MG TAB PO SCH (09:17)
[2018-01-21] MEDS: FLUoxetine HCL LIQUID 20 MG/5 ML CUP PO SCH (09:17)
[2018-01-21 11:34] VITALS: BP 151/67; PULSE 89; RESP 18; O2SAT 98
--- NOTE | 2018-01-21 13:36 | EKG ---
Date Performed: 01/20/2018 Time Performed: 20:10:53 PTAGE: 67 years EKG: Sinus rhythm MINIMAL VOLTAGE CRITERIA FOR LVH, CONSIDER NORMAL VARIANT BORDERLINE ECG Since the PREVIOUS TRACING , no significant change noted PREVIOUS TRACIN04/27/2015 11.44 DOCTOR: Maykel Valencia Interpretating Date/Time 01/21/2018 13:34:16
[2018-01-21 16:37] VITALS: BP 144/65; PULSE 93; RESP 20; TEMP 98; O2SAT 95
[2018-01-21 18:08] VITALS: BP 154/78; PULSE 87; RESP 18; TEMP 97.9; O2SAT 95
[2018-01-21] MEDS ORDERED: REST0.05 EACH EYE (19:14)
[2018-01-21] MEDS ORDERED: ERYTOIN10 EACH EYE (19:29)
[2018-01-21 20:24] VITALS: BP 160/81; PULSE 80; RESP 16; TEMP 98.3; O2SAT 95
[2018-01-21] MEDS: EYE EMULSION EACH EYE SCH (21:00)
[2018-01-21] MEDS: CYCLOSPORINE 0.05% EACH EYE SCH (21:00)
[2018-01-21 21:03] VITALS: PULSE 79
[2018-01-21] MEDS: ERYTHROMYCIN 0.5% OPTH OINT 3.5 GM TUBO EACH EYE SCH (23:48)
[2018-01-22 00:11] VITALS: PULSE 68
[2018-01-22 00:20] VITALS: BP 146/69; PULSE 72; RESP 16; O2SAT 98
[2018-01-22 02:56] VITALS: BP 136/77; PULSE 76; RESP 16; TEMP 98.3; O2SAT 96
[2018-01-22 04:02] VITALS: PULSE 71
[2018-01-22 08:21] VITALS: BP 153/74; PULSE 83; RESP 18; TEMP 97.6; O2SAT 96
[2018-01-22 08:41] LABS: AUTOMATED NEUTROPHIL # 5.9 TH/MM3 (1.8-7.7); BASOPHIL # 0.1 TH/MM3 (0-0.2); EOSINOPHIL # 0.2 TH/MM3 (0-0.4); EOSINOPHIL % 2.8 % (0.0-4.0); HEMATOCRIT 33.9 % (35.0-46.0); HEMOGLOBIN 11.2 GM/DL (11.6-15.3); LYMPH % 15.8 % (9.0-44.0); LYMPHOCYTE # 1.3 TH/MM3 (1.0-4.8); MEAN CELL VOLUME 93.4 FL (80.0-100.0); MEAN CORPUSCULAR HEMOGLOBIN 30.8 PG (27.0-34.0); MEAN CORPUSCULAR HGB CONC 32.9 % (32.0-36.0); MEAN PLATELET VOLUME 7.7 FL (7.0-11.0); MONO % 10.9 % (0.0-8.0); MONOCYTE # 0.9 TH/MM3 (0-0.9); NEUT % 69.5 % (16.0-70.0); PLATELET COUNT 409 TH/MM3 (150-450); RED BLOOD COUNT 3.63 MIL/MM3 (4.00-5.30); RED CELL DISTRIBUTION WIDTH 14.2 % (11.6-17.2); WHITE BLOOD COUNT 8.5 TH/MM3 (4.0-11.0)
[2018-01-22] MEDS: EYE EMULSION EACH EYE SCH (09:00)
[2018-01-22] MEDS: ERYTHROMYCIN 0.5% OPTH OINT 3.5 GM TUBO EACH EYE SCH (09:00)
[2018-01-22] MEDS: CYCLOSPORINE 0.05% EACH EYE SCH (09:00)
[2018-01-22 09:14] LABS: ALBUMIN 2.6 GM/DL (3.4-5.0); AST (GOT) 4 U/L (15-37); BICARBONATE 25.4 MEQ/L (21.0-32.0); BLOOD UREA NITROGEN 19 MG/DL (7-18); CALCIUM 8.5 MG/DL (8.5-10.1); CHLORIDE 110 MEQ/L (98-107); CREATININE 1.11 MG/DL (0.50-1.00); GLOMERULAR FILTRATION RATE 49 ML/MIN (>89); GLUCOSE,RANDOM 101 MG/DL (74-106); SODIUM (NA) 142 MEQ/L (136-145)
[2018-01-22 09:15] LABS: ALKALINE PHOSPHATASE 90 U/L (45-117); ALT (GPT) 10 U/L (10-53); TOTAL BILIRUBIN ADULT 0.3 MG/DL (0.2-1.0); TOTAL PROTEIN 6.2 GM/DL (6.4-8.2)
[2018-01-22] MEDS: FUROSEMIDE 40 MG TAB PO SCH (09:54)
[2018-01-22] MEDS: FAMOTIDINE 20 MG TAB PO SCH (09:54)
[2018-01-22] MEDS: FOLIC ACID 1 MG TAB PO SCH (09:54)
[2018-01-22] MEDS: THIAMINE HCL 100 MG TAB PO SCH (09:54)
[2018-01-22] MEDS: FLUoxetine HCL LIQUID 20 MG/5 ML CUP PO SCH (09:54)
[2018-01-22] MEDS: MULTIVITAMINS/MINERALS THERAPEUTIC TAB PO SCH (09:54)
[2018-01-22] MEDS: ASPIRIN 325 MG TAB PO SCH (09:55)
[2018-01-22] MEDS: DOCUSATE SODIUM 50 MG/SENNA 8.6 MG TAB PO SCH (09:55)
[2018-01-22] MEDS: SODIUM CHLORIDE 0.9% FLUSH 10 ML FLUSH IV FLUSH SCH (09:58)
--- NOTE | 2018-01-22 11:45 | HHI.PR ---
Subjective Remarks in no acute distress. pain is controlled. no new complaints. Objective Vitals Vital Signs Date Time Temp Pulse Resp B/P (MAP) Pulse Ox O2 Delivery O2 Flow Rate FiO2 01/22/18 08:21 97.6 83 18 153/74 (100) 96 01/22/18 04:02 71 01/22/18 02:56 98.3 76 16 136/77 (96) 96 01/22/18 00:20 72 16 146/69 (94) 98 01/22/18 00:11 68 01/21/18 21:03 79 01/21/18 20:24 98.3 80 16 160/81 (107) 95 01/21/18 18:08 97.9 87 18 154/78 (103) 95 01/21/18 16:37 98.0 93 20 144/65 (91) 95 I/O 01/21/18 01/21/18 01/21/18 01/22/18 01/22/18 01/22/18 07:00 15:00 23:00 07:00 15:00 23:00 Intake Total 240 ml 250 ml Balance 240 ml 250 ml Intake Oral 240 ml 250 ml # Voids 2 3 # Bowel Movements 2 Result Diagram: 01/22/18 0756 01/22/18 0756 Imaging Last Impressions Ankle X-Ray 01/20/18 0000 Signed Impressions: Service Date/Time: Saturday, January 20, 2018 20:55 - CONCLUSION: Mildly displaced medial malleolar fracture. Amaury Mackey MD Objective Remarks GENERAL: This is a well-nourished, well-developed patient, in no apparent distress. CARDIOVASCULAR: Regular rate and regular rhythm without murmurs, gallops, or rubs. RESPIRATORY: Clear to auscultation. Breath sounds equal bilaterally. No wheezes , rales, or rhonchi. GASTROINTESTINAL: Abdomen soft, non-tender, nondistended. Normal, active bowel sounds MUSCULOSKELETAL: left ankle covered with clean dressing. NEURO: Alert & Oriented x4 to person, place, time, situation. Moves all ext x4 Medications and IVs Inpatient Medications Acetaminophen (Tylenol) 650 mg Q4H PRN PO TEMP > 100.4; Start 01/21/18 at 02:30 Aspirin (Aspirin) 325 mg DAILY PO Last administered on 01/22/18at 09:55; Start 01/21/18 at 09:00 Bisacodyl (Dulcolax Supp) 10 mg DAILY PRN RECTAL SEVERE CONSITIPATION; Start at 02:30 Calcium Gluconate 1 gm/Sodium Chloride 110 ml @ 110 mls/hr ONCE ONCE IV Last administered on 01/20/18at 23:32; Start 01/20/18 at 23:15; Stop 01/21/18 at 00:14 ; Status DC Cefazolin Sodium/ Dextrose 50 ml @ 100 mls/hr ONCE ONCE IV Last administered on 01/20/18at 21:17; Start 01/20/18 at 20:45; Stop 01/20/18 at 21:14; Status DC Dextrose (D50w (Syr) Inj) 25 ml ONCE ONCE IV PUSH Last administered on at 00:51; Start 01/21/18 at 02:30; Stop 01/21/18 at 02:31; Status DC Dextrose/Sodium Chloride 1,000 ml @ 125 mls/hr Q8H IV Last administered on at 04:27; Start 01/21/18 at 02:30; Stop 01/21/18 at 09:39; Status DC Erythromycin (Ilotycin 0.5% Opth Oint) 1 applic BID EACH EYE Last administered on 01/21/18at 23:48; Start 01/21/18 at 21:00 Famotidine (Pepcid) 10 mg BID PO Last administered on 01/22/18at 09:54; Start at 09:00 Flumazenil (Romazicon Inj) 0.2 mg Q1M PRN IV PUSH SEE LABEL COMMENTS; Start at 02:30 Fluoxetine HCl (PROzac LIQ) 20 mg DAILY PO Last administered on 01/22/18at 09:54 ; Start 01/21/18 at 10:00 Folic Acid (Folate) 1 mg DAILY PO Last administered on 01/22/18at 09:54; Start 01/21/18 at 09:00; Stop 01/26/18 at 08:59 Furosemide (Lasix) 40 mg DAILY PO Last administered on 01/22/18at 09:54; Start 01/21/18 at 09:00 Insulin Human Regular (NovoLIN R INJ) 7 units ONCE ONCE IV PUSH Last administered on 01/20/18at 23:33; Start 01/20/18 at 23:15; Stop 01/20/18 at 23:16 ; Status DC Ketorolac Tromethamine (Toradol Inj) 30 mg ONCE ONCE IV PUSH Last administered on 01/21/18at 02:45; Start 01/21/18 at 02:45; Stop 01/21/18 at 02:47 ; Status DC Lactulose (Lactulose Liq) 30 ml DAILY PRN PO SEVERE CONSITIPATION; Start at 02:30 Lidocaine HCl (Xylocaine-Mpf 1% Inj) 30 ml ONCE ONCE INFIL Last administered on 01/20/18at 22:09; Start 01/20/18 at 20:30; Stop 01/20/18 at 20:33; Status DC Lorazepam (Ativan Inj) 2 mg Q15M PRN IV PUSH CIWA > 20; Start 01/21/18 at 02:30 Lorazepam (Ativan) 2 mg Q2H PRN PO CIWA 11-14; Start 01/21/18 at 02:30 Magnesium Hydroxide (Milk Of Magnesia Liq) 30 ml Q12H PRN PO Mild constipation ; Start 01/21/18 at 02:30 Multivitamins/ Minerals Therapeutic (Theragran M Tab) 1 tab DAILY PO Last administered on 01/22/18at 09:54; Start 01/21/18 at 09:00; Stop 01/26/18 at 08:59 Naloxone HCl (Narcan Inj) 0.4 mg UNSCH PRN IV PUSH SEE LABEL COMMENTS; Start at 02:30 Ondansetron HCl (Zofran Inj) 4 mg Q6H PRN IVP NAUSEA OR VOMITING; Start at 02:30 Patient Own Medication PT OWN MED: CYCLOSPORINE 0.05% ... BID EACH EYE ; Start 01/21/18 at 21:00 Senna/Docusate Sodium (Isaura-Colace) 1 tab BID PO Last administered on at 09:55; Start 01/21/18 at 09:00 Sennosides (Senokot) 17.2 mg Q12H PRN PO Moderate constipation; Start 01/21/18 at 02:30 Sodium Polystyrene Sulfonate (Kayexalate Liq) 15 gm ONCE ONCE PO Last administered on 01/20/18at 23:32; Start 01/20/18 at 22:15; Stop 01/20/18 at 22:19 ; Status DC Sodium Chloride (NS Flush) 2 ml BID IV FLUSH Last administered on 01/22/18at 09: 58; Start 01/21/18 at 09:00 Thiamine HCl (Vitamin B1) 100 mg DAILY PO Last administered on 01/22/18at 09:54 ; Start 01/21/18 at 09:00 A/P Problem List: (1) Fracture of ankle, medial malleolus, closed ICD Code: S82.53XA - Displaced fracture of medial malleolus of unspecified tibia, initial encounter for closed fracture Status: Acute Assessment and Plan - left ankle fracture after a fall ortho consult appreciated; nonsurgical treatment; nonweight-bearing/ pain control- PT consulted. -hyperkalemia; resolved CKD- stable- f/u as outpatient. -history of hypertension/ CVA; resume aspirin/ hold lisinopril due to hyperkalemia; will start on norvasc. Discharge Planning dc home today with [facility]. see med list. f/u;pcp and ortho. d/w the patient. Problem Qualifiers (1) Fracture of ankle, medial malleolus, closed: Qualified Codes: S82.52XA - Displaced fracture of medial malleolus of left tibia, initial encounter for closed fracture Liza Figueroa MD Jan 22, 2018 11:45
--- NOTE | 2018-01-22 11:45 | HHI.FF ---
Face to Face Verification Diagnosis: (1) Fracture of ankle, medial malleolus, closed Physical Therapy Order: Evaluate and Treat Home Health Nursing Order: Medical education Signs/symptoms of disease process Medication education-adverse effect Nursing assessment with vital signs I have seen patient Keke Bridges on 01/22/18. My clinical findings support the need for the requested home health care services because: Ltd mobility - disease progression I certify that my clinical findings support that this patient is homebound because: Unsteady gait/balance Liza Figueroa MD Jan 22, 2018 11:45
[2018-01-22] MEDS ORDERED: NORC5TAB PO (11:46)
[2018-01-22] MEDS ORDERED: AMLO5 PO (11:47)
[2018-01-22 12:08] VITALS: BP 170/81; PULSE 84; RESP 18; TEMP 98.5; O2SAT 96
== END 2018-01-22 15:19 | disposition home or self-care (01) ==
LOC: NEPC 19:16 → NEDA 01-21 01:19 → NEDH 01-21 17:15 → NEPFCDU 01-21 18:06
PROVIDERS: ADMIT Internal Medicine; ATTEND Internal Medicine
DX: S82.52XA Displaced fracture of medial malleolus of left tibia, initial encounter for closed fracture (principal); S91.012A Laceration without foreign body, left ankle, initial encounter; E87.5 Hyperkalemia; R11.0 Nausea; I12.9 Hypertensive chronic kidney disease with stage 1 through stage 4 chronic kidney disease, or unspecified chronic kidney disease; N18.9 Chronic kidney disease, unspecified; K21.9 Gastro-esophageal reflux disease without esophagitis; M54.9 Dorsalgia, unspecified; M54.2 Cervicalgia; G89.29 Other chronic pain; F32.9 Major depressive disorder, single episode, unspecified; Z86.73 Personal history of transient ischemic attack (TIA), and cerebral infarction without residual deficits; Z85.828 Personal history of other malignant neoplasm of skin; Z79.899 Other long term (current) drug therapy; Z79.82 Long term (current) use of aspirin; W01.0XXA Fall on same level from slipping, tripping and stumbling without subsequent striking against object, initial encounter; Y92.481 Parking lot as the place of occurrence of the external cause
CPT/HCPCS: 12005; 73610; 80048; 80053; 80307; 82948; 83735; 84132; 85025; 93005; 96361; 96365; 96366; 96368; 96375; 97162; 99291; G0378; G8987; G8988; J0610; J0690; J1815; J1885; J2405; J7030; J7042; L2114